=== PATIENT | female | born 1955 | race Caucasian/White ===

== ENCOUNTER 2018-06-18 10:45 | Outpatient (CLI) | payer OTHER ==
--- NOTE | 2018-06-21 09:53 | MMO ---
BILATERAL SCREENING MAMMOGRAM: Date: 06/18/18 HISTORY: Screening. COMPARISON: Mammograms from 2017, 2014, and 2013. TECHNIQUE: Bilateral screening CC and MLO mammograms. This patient's mammogram was interpreted with the assistance of computer-aided detection. FINDINGS: There are scattered fibroglandular densities. Benign calcifications both breasts. There is a focal asymmetry of left breast, similar to comparison examination dating back to 2014. No suspicious mass, architectural distortion, or microcalcifications. IMPRESSION: BIRADS 2: Benign Finding(s) Continued annual mammographic screening is recommended. POS: HILARIA
== END 2018-06-18 10:46 | disposition home or self-care (01) ==
LOC: SCSMAMMO 10:45
PROVIDERS: ATTEND Family Medicine
DX: Z12.31 Encounter for screening mammogram for malignant neoplasm of breast (principal)
CPT/HCPCS: 77067

== ENCOUNTER 2019-08-09 12:06 | Outpatient (CLI) | payer OTHER ==
--- NOTE | 2019-08-09 13:01 | MMO ---
Bilateral MAMMO Bilat Screen [facility]. CLINICAL HISTORY: Patient is 63 years old and is seen for screening. The patient has no family history of breast cancer. The patient has no personal history of cancer. VIEWS: The views performed were: bilateral craniocaudal with tomosynthesis and bilateral mediolateral oblique with tomosynthesis. FILMS COMPARED: The present examination has been compared to a prior imaging study performed at [facility] on 06/18/2018. This study has been interpreted with the assistance of computer-aided detection. MAMMOGRAM FINDINGS: There are scattered fibroglandular densities. There are stable benign appearing calcifications seen in both breasts. There are no suspicious masses, suspicious calcifications, or new areas of architectural distortion. IMPRESSION: THERE IS NO MAMMOGRAPHIC EVIDENCE OF MALIGNANCY. A ROUTINE FOLLOW-UP MAMMOGRAM IN 1 YEAR IS RECOMMENDED. THE RESULTS OF THIS EXAM WERE SENT TO THE PATIENT. ACR BI-RADS Category 2 - Benign finding MAMMOGRAPHY NOTE: 1. A negative mammogram report should not delay a biopsy if a dominant of clinically suspicious mass is present. 2. Approximately 10% to 15% of breast cancers are not detected by mammography. 3. Adenosis and dense breasts may obscure an underlying neoplasm. Reported by: STUART WOMACK MD Electonically Signed: [id number]
== END 2019-08-09 12:07 | disposition home or self-care (01) ==
LOC: BICMAMMO 12:06
PROVIDERS: ATTEND Family Medicine
DX: Z12.31 Encounter for screening mammogram for malignant neoplasm of breast (principal)
CPT/HCPCS: 77063; 77067

== ENCOUNTER 2023-01-19 14:21 | Outpatient (CLI) | payer MEDICARE ==
[2023-01-19 15:54] LABS: #Eosinphils 0.2 10x3/uL (0.0-0.5); #Monocytes 0.5 10x3/uL (0.0-1.1); #Neutrophils 4.3 10x3/uL (1.5-8.4); %Basophils 0.4 % (0.0-2.0); %Eosinophils 2.3 % (0.0-6.0); %Lymphocytes 28.8 % (18.0-47.0); %Monocytes 7.1 % (0.0-10.0); %Neutrophils 61.3 % (40.0-75.0); Hemoglobin 12.5 g/dL (12.0-15.5); Mean Corpuscular HGB CONC 32.8 g/dL (32.0-36.0); Mean Corpuscular Hemoglobin 31.2 pg (27.0-33.0); Platelet Count 360 10x3/uL (150-450); RBC Distribution Width 12.6 % (11.5-14.5); Red Blood Cell (RBC) Count 4.01 10x6/uL (3.90-5.03); White Blood Cell (WBC) Count 6.9 10x3/uL (3.5-10.5)
[2023-01-19 16:14] LABS: Anion Gap 17 mmol/L (10-20); BUN (Urea Nitrogen) 23 mg/dL (9.8-20.1); Calc. Creatinine Clearance 0 mL/min (70-130); Calcium 10.2 mg/dL (7.8-10.44); Carbon Dioxide 26 mmol/L (23-31); Chloride 100 mmol/L (98-107); Estimated GFR 59; Glucose 92 mg/dL (80-115); Potassium 4.7 mmol/L (3.5-5.1); Sodium 138 mmol/L (136-145)
== END 2023-01-19 14:22 | disposition home or self-care (01) ==
LOC: LABBT 14:21
PROVIDERS: ATTEND Surgery
DX: Z01.812 Encounter for preprocedural laboratory examination (principal); R22.42 Localized swelling, mass and lump, left lower limb
CPT/HCPCS: 80048; 85025

== ENCOUNTER 2023-01-25 11:25 | Day surgery (SDC) | payer MEDICARE ==
[2023-01-23 15:32] VITALS: BMI 23.0
[2023-01-25] MEDS ORDERED: EPINEPHrine 1 MG/ML AMP ONE (13:41)
[2023-01-25] MEDS ORDERED: Lidocaine 2% PF 5 ML VIAL ONE (13:41)
[2023-01-25] MEDS ORDERED: Bupivacaine 0.25% HCL 30 ML VIAL ONE (13:41)
[2023-01-25] MEDS ORDERED: fentaNYL 50 mcg/mL 1 mL Vial ONE (13:44)
[2023-01-25] MEDS ORDERED: Famotidine/PF 20 mg/2ml Vial ONE (13:49)
[2023-01-25] MEDS ORDERED: Sodium Chloride 0.9% 100 ML ONE (13:55)
[2023-01-25] MEDS ORDERED: CEFAZOLIN 2 GM VIAL ONE (13:55)
[2023-01-25] MEDS ORDERED: Dexamethasone 20 MG/5 ML VIAL ONE (14:07)
[2023-01-25] MEDS ORDERED: Lidocaine 1% PF 5 ML VIAL ONE (14:07)
[2023-01-25] MEDS ORDERED: Ondansetron PF 4 MG/2 ML Vial ONE (14:07)
[2023-01-25] MEDS ORDERED: PROPOFOL 200 MG/20 ML VIAL ONE (14:07)
== END 2023-01-25 17:00 | disposition home or self-care (01) ==
LOC: SDC 11:25
PROVIDERS: ATTEND Surgery
PROC: 0JBL0ZZ Excision of Right Upper Leg Subcutaneous Tissue and Fascia, Open Approach (ICD-10-PCS; principal; 2023-01-25)
DX: M79.89 Other specified soft tissue disorders (principal); Z79.899 Other long term (current) drug therapy; Z88.5 Allergy status to narcotic agent; Z91.013 Allergy to seafood; Z91.041 Radiographic dye allergy status
CPT/HCPCS: 27339; J3010; 88304; J0171; J1100; J2001; J2405; J2704; J3490; S0020; S0028